=== PATIENT | male | born 1960 | race African-American/Black ===

== ENCOUNTER 2021-10-08 20:16 | Emergency (ER) | payer MEDICAID ==
[~2021-10-08] VITALS: Ht 177.8 cm; Wt 91.0 kg
[2021-10-08 20:26] VITALS: BP 106/54
== END 2021-10-09 00:28 | disposition left against medical advice (07) ==
LOC: EDSEX 20:16 → ER 20:16
DX: R10.30 Lower abdominal pain, unspecified (principal)
CPT/HCPCS: 99283

== ENCOUNTER 2021-10-09 00:48 | Emergency (ER) | payer MEDICAID ==
[~2021-10-09] VITALS: Ht 177.8 cm; Wt 91.0 kg
[2021-10-09 01:18] VITALS: BP 96/70
[2021-10-09 02:17] LABS: CLARITY URINE CLEAR (CLEAR); COLOR URINE YELLOW (YELLOW); KETONES URINE NEGATIVE (NEGATIVE); LEUKOCYTE ESTERASE URINE NEGATIVE (NEGATIVE); NITRITE URINE NEGATIVE (NEGATIVE); OCCULT BLOOD URINE NEGATIVE (NEGATIVE); PROTEIN URINE NEGATIVE (NEGATIVE); SPECIFIC GRAVITY URINE 1.014 (1.005-1.030); UROBILINOGEN URINE 0.2 E.U./dL (0.2-1.0)
[2021-10-09] MEDS ORDERED: KETOROLAC 30MG/ML VIAL IV STA (06:34)
[2021-10-09 09:54] LABS: BASOPHILS % 3.2 % (0.0-2.0); EOSINOPHILS % 1.9 % (0.0-5.0); HEMATOCRIT. 38.2 % (42.0-52.0); HEMOGLOBIN. 12.2 g/dL (14.0-18.0); LYMPHOCYTES % 57.1 % (20.0-50.0); MEAN CORPUSCULAR HEMOGLOBIN 30.8 pg (28.0-32.0); MONOCYTES % 6.5 % (2.0-8.0); NEUTROPHILS % 31.3 % (40.0-76.0); PLATELET 302 x1000/uL (130-400); RED BLOOD CELL COUNT 3.97 mill/uL (4.7-6.1); RED CELL DISTRIBUTION WIDTH 18.1 % (11.6-14.6)
[2021-10-09 10:02] LABS: CHLORIDE 109 mEq/L (98-107)
== END 2021-10-09 11:51 | disposition left against medical advice (07) ==
LOC: ER 00:48
DX: R10.9 Unspecified abdominal pain (principal); Z98.890 Other specified postprocedural states; F10.21 Alcohol dependence, in remission
CPT/HCPCS: 36415; 80053; 81003; 85025; 99283